=== PATIENT | female | born 1975 | race Two or more races ===

== ENCOUNTER 2018-12-28 05:48 | Day surgery (SDC) | payer OTHER ==
[~2018-12-28 05:48] MED LIST: LOSARTAN POTASS50 MG PO; PLAQUENIL PO
[2018-12-28] MEDS ORDERED: PERCOCET 5-3251 EACH PO (09:09)
[2018-12-28] MEDS ORDERED: RECTICARE30 GM TOP (09:13)
[2018-12-28] MEDS ORDERED: NEURONTIN300 MG PO (09:13)
== END 2018-12-28 15:30 | disposition home or self-care (01) ==
LOC: CIR.AMB 05:48
DX: K64.8 Other hemorrhoids (principal); K64.4 Residual hemorrhoidal skin tags; K60.1 Chronic anal fissure; K64.2 Third degree hemorrhoids

== ENCOUNTER 2021-04-10 09:33 | Day surgery (SDC) | payer OTHER ==
[~2021-04-10 09:33] MED LIST changes: +NEURONTIN300 MG PO; +PERCOCET 5-3251 EACH PO; +RECTICARE30 GM TOP
== END 2021-04-10 15:15 | disposition home or self-care (01) ==
LOC: AMB-ENDOS 09:33
PROVIDERS: ATTEND Surgery
DX: K63.5 Polyp of colon (principal); Z12.11 Encounter for screening for malignant neoplasm of colon